=== PATIENT | female | born 1970 | race Caucasian/White ===

== ENCOUNTER 2024-04-22 13:23 | Emergency (ER) | payer OTHER ==
[~2024-04-22] VITALS: Ht 165.1 cm; Wt 81.1 kg
[2024-04-22] MEDS ORDERED: HYDROmorphone HCL 2 MG/ML VL/or syr IM ONE (14:00)
[2024-04-22] MEDS ORDERED: ONDANSETRON ODT 4 MG TAB PO ONE (14:00)
--- NOTE | 2024-04-22 14:03 | ED.PDOC ---
Musculoskeletal HPI Comments 53-year-old female presents with a chief complaint of bilateral arm pain and deformity s/p fall. Patient states that she had a mechanical fall backwards onto outstretched upper extremities at home and injured both arms, right more than left. Patient mentions that she feels like her right upper extremity is broken because she has broken it twice before in the past. Patient is also complaining of left arm pain and is unsure if she broke it as well. Patient denies hitting her head or losing consciousness. Chief Complaint: Upper Extremity Time Seen by MD: 13:48 Reviewed Notes: Medications, Allergies Allergies: Coded Allergies: NO KNOWN ALLERGIES (Unverified , 04/22/24) Information Source: Patient Mode of Arrival: Ambulatory Location: Bilateral Extremity Location: Arm Timing: Minutes Prehospital treatment: None Severity: Moderate Able to Move Extremity: No Bear Weight: No Pain: Severe Hand Dominance: Right Mechanism: Blunt Trauma Circumstances: Fall Onset of Symptoms: After Trauma Symptoms: Pain DVT Risk Factors: NONE Last Tetanus: Unknown Past Medical History PAST MEDICAL HISTORY: Denies Surgical History (Other): 2 previous right upper extremity orthopedic surgeries MECHANICAL APPLICATIONS ENGINEER History: No Pertinent MECHANICAL APPLICATIONS ENGINEER History Family History Family History: Reviewed,noncontributory to illness Social History Smoker: Non-Smoker Alcohol: Denies ETOH Use Drugs: Denies Drug Use Lives In: Home Constitutional: denies: chills, diaphoresis, fatigue, fever, malaise, sweats, weakness, others EENTM: denies: blurred vision, double vision, ear bleeding, ear discharge, ear drainage, ear pain, ear ringing, eye pain, eye redness, hearing loss, mouth pain, mouth swelling, nasal discharge, nose bleeding, nose congestion, nose pain, photophobia, tearing, throat pain, throat swelling, voice changes, others Respiratory: denies: cough, hemoptysis, orthopnea, SOB at rest, shortness of breath, SOB with excertion, stridor, wheezing, others Cardiovascular: denies: chest pain, dizzy spells, diaphoresis, Dyspnea on exertion, edema, irregular heart beat, left arm pain, lightheadedness, palpitations, PND, syncope, others Gastrointestinal: denies: abdomen distended, abdominal pain, blood streaked bowels, constipated, diarrhea, dysphagia, difficulty swallowing, hematemesis, melena, nausea, poor appetite, poor fluid intake, rectal bleeding, rectal pain, vomiting, others Genitourinary: denies: abnormal vagina bleeding, burning, dyspareunia, dysuria, flank pain, frequency, hematuria, incontinence, pain, , vagina discharge, urgency, others Neurological: denies: dizziness, fainting, headache, left sided numbness, left sided weakness, numbness, paresthesia, pre-existing deficit, right sided numbness, right sided weakness, seizure, speech problems, tingling, tremors, weakness, others Musculoskeletal: reports: muscle pain; denies: back pain, gout, joint pain, joint swelling, muscle stiffness, neck pain, others Integumetry: denies: bruises, change in color, change in hair/nails, dryness, laceration, lesions, lumps, rash, wounds, others Allergic/Immunocompromised: denies: Difficulty Healing, Frequent Infections, Hives, Itching, others Hematologic/Lymphatic: denies: anemia, blood clots, easy bleeding, easy bruising, swollen glands, others Endocrine: denies: excessive hunger, excessive sweating, excessive thirst, excessive urination, flushing, intolerance to cold, intolerance to heat, unexplained weight gain, unexplained weight loss, others Psychiatric: denies: anxiety, bipolar disorder, depression, hopeless, panic disorder, schizophrenia, sleepless, suicidal, others All Other Systems: Reviewed and Negative Physical Exam General Appearance: Mild Distress HEENT: PERRL/EOMI Neck: Full Range of Motion, Normal Inspection Respiratory: Lungs Clear, No Accessory Muscle Use, No Respiratory Distress, Normal Breath Sounds Cardiovascular: No Edema, No JVD, Regular Rate/Rhythm Breast Exam: Deferred Gastrointestinal: Non Tender, Soft Genitalia: Deferred Pelvic: Deferred Rectal: Deferred Extremities: No pedal edema, Other (Right wrist deformity, tenderness and soft tissue swelling distal radial aspect. Left wrist diffuse mild soft tissue tenderness and minimal soft tissue swelling. Bilateral upper extremities neurovascularly intact.) Neurologic: Alert (Oriented x4), Normal Affect, Normal Mood, Other (Ambulatory. No gross focal deficit.) Cerebellar Function: NOT DONE Reflexes: NOT DONE Skin: Dry, Normal Color, Warm Lymphatic: NOT DONE Was a procedure done? Was a procedure done?: Yes Sedation Sedation?: No Other Procedure Procedure Splinting of the right upper extremity Informed consent obtained: Yes Risks, benefits, and alternati: Yes Notes Sugar-tong splint was applied to the right forearm, wrist and hand. The right upper extremity was neurovascularly intact after the splint was applied. Differential Diagnosis EXT Differential Diagnosis: Compartment Syndrome, Fracture, Sprain, Dislocation, Contusion, Strain X-Ray, Labs, Meds, VS Vital Signs Date Time Temp Pulse Resp B/P (MAP) Pulse Ox O2 Delivery O2 Flow Rate FiO2 04/22/24 18:37 60 13 125/53 04/22/24 18:08 61 04/22/24 18:05 60 16 128/59 04/22/24 16:00 98.1 63 16 123/60 (81) 96 98.1 04/22/24 15:45 62 16 95 Room Air* 0 21 04/22/24 15:00 65 16 136/71 (92) 93 04/22/24 14:42 97 16 177/90 04/22/24 14:12 58 16 135/77 04/22/24 14:00 98.3 57 16 135/77 (96) 93 98.3 04/22/24 13:41 97.1 65 20 172/111 (131) 96 97.1 Lab Test 04/22/24 15:03 Range/Units Beta HCG, Quantitative 3.0 1.5-4.2 mIU/mL Current Medications Medications (Trade) Dose Ordered Sig/Rosey Route Start Time Stop Time Status Last Admin Sodium Chloride 1,000 ml @ 1,000 mls/hr Q1H ONCE IV 04/22/24 14:00 04/22/24 14:59 DC 04/22/24 14:13 Ondansetron HCl (Zofran) 4 mg ONCE ONCE IV 04/22/24 14:00 04/22/24 14:01 DC 04/22/24 14:12 Hydromorphone HCl (Dilaudid Injection) 1 mg ONCE ONCE IV 04/22/24 14:00 04/22/24 14:01 DC 04/22/24 14:12 Hydromorphone HCl (Dilaudid Injection) 1 mg ONCE ONCE IV 04/22/24 18:00 04/22/24 18:01 DC 04/22/24 18:05 Ondansetron HCl (Zofran) 4 mg ONCE ONCE IV 04/22/24 19:15 04/22/24 19:16 DC 04/22/24 19:37 PROCEDURE(s): LWRI - L WRIST 3+ VIEW XRAY REASON: trauma ORDER NUMBER(s): [id number], ACCESSION NUMBER(s): [id number] EXAM: XY L WRIST 3+ VIEW XRAY CLINICAL HISTORY: trauma COMPARISON: None TECHNIQUE: XY L WRIST 3+ VIEW XRAY Findings/Impression: 3 views of the left wrist. There is no evidence of an acute fracture, dislocation, blastic, or lytic lesions. No radiopaque foreign bodies. No joint effusion or superficial soft tissue abnormalities. EDURE(s): RWRI - R WRIST 3+ VIEW XRAY REASON: trauma ORDER NUMBER(s): [id number], ACCESSION NUMBER(s): [id number] EXAM: XY R WRIST 3+ VIEW XRAY CLINICAL HISTORY: trauma COMPARISON: None TECHNIQUE: XY R WRIST 3+ VIEW XRAY Findings/Impression: 3 views of the right wrist. Impacted fracture of the distal radius with dorsal angulation of the distal fracture fragments. Mild soft tissue edema. There is no evidence of dislocation, blastic, or lytic lesions. No radiopaque foreign bodies. EDURE(s): LHAN - L HAND 3V XRAY REASON: trauma ORDER NUMBER(s): [id number], ACCESSION NUMBER(s): [id number] EXAM: XY L HAND 3V XRAY CLINICAL HISTORY: trauma COMPARISON: None TECHNIQUE: XY L HAND 3V XRAY Findings/Impression: 3 views of the left hand. There is no evidence of an acute fracture, dislocation, blastic, or lytic lesions. No radiopaque foreign bodies. No superficial soft tissue abnormalities. EDURE(s): RHAN - R HAND 3 VIEW XRAY REASON: trauma ORDER NUMBER(s): [id number], ACCESSION NUMBER(s): [id number] EXAM: XY R HAND 3 VIEW XRAY CLINICAL HISTORY: trauma COMPARISON: None TECHNIQUE: XY R HAND 3 VIEW XRAY Findings/Impression: 3 views of the right hand. Impacted fracture of the distal radius with dorsal angulation of the distal fracture fragments. Mild soft tissue edema. There is no evidence of dislocation, blastic, or lytic lesions. No radiopaque foreign bodies. EDURE(s): LFOR - L FOREARM XRAY REASON: trauma ORDER NUMBER(s): [id number], ACCESSION NUMBER(s): [id number] EXAM: XY L FOREARM XRAY CLINICAL HISTORY: trauma COMPARISON: None TECHNIQUE: XY L FOREARM XRAY Findings/Impression: 2 views of the left forearm. There is no evidence of an acute fracture, dislocation, blastic, or lytic lesions. No radiopaque foreign bodies. No superficial soft tissue abnormalities. vPROCEDURE(s): RFOR - R FOREARM XRAY REASON: trauma ORDER NUMBER(s): [id number], ACCESSION NUMBER(s): [id number] EXAM: XY R FOREARM XRAY CLINICAL HISTORY: trauma COMPARISON: None TECHNIQUE: XY R FOREARM XRAY Findings/Impression: 2 views of the right forearm. Impacted fracture of the distal radius with dorsal angulation of the distal fracture fragments. Mild soft tissue edema. There is no evidence of dislocation, blastic, or lytic lesions. No radiopaque foreign bodies. X-Ray, Labs, Meds, VS Comment 53-year-old female with a history of 2 prior right upper extremity fractures presenting with bilateral forearm/wrist pain status post mechanical fall onto bilateral outstretched upper extremities Vitals unremarkable Exam remarkable for right wrist deformity, swelling and tenderness, left wrist swelling and tenderness Rhythm strip independently interpreted by me: Sinus rhythm, rate 62, no ectopy. Left forearm, wrist, and hand x-rays unremarkable Right forearm, wrist and hand x-rays: Impacted fracture of the distal radius with dorsal angulation of the distal fracture fragments. Mild soft tissue edema. There is no evidence of dislocation, blastic, or lytic lesions. No radiopaque foreign bodies. Patient treated with the following in the ED: L 0.9 normal saline IV bolus, Dilaudid 1 mg IV x4, Zofran 4 mg IV x3 The right forearm, wrist and hand were placed in a sugar-tong splint. The right upper extremity was neurovascularly intact after the splint was applied. Please see procedure note for details. On re-evaluation, patient states pain has improved. Vitals were stable. She is able to move the fingers of her right hand. Patient appears stable for discharge with close outpatient follow-up with an orthopedist. She will be referred to our orthopedic clinic, Dr. Owen. Rx Dilaudid, Zofran Time of 1ST Reevaluation: 14:18 Reevaluation 1ST: Unchanged Patient Education/Counseling: Diagnosis, Need For Follow Up Family Education/Counseling: No Family Present Departure 1 Departure Time of Disposition: 20:28 Impression: Primary Impression: Closed right radial fracture Qualified Codes: S52.501A - Unspecified fracture of the lower end of right radius, initial encounter for closed fracture Disposition: HOME / SELF CARE / HOMELESS Condition: Stable Referrals: DIDIER OWEN MD Additional Instructions: Follow-up with Dr. Owen, orthopedics in 1-2 days. [place] [address] Ph: [phone] DIAGNOSTIC IMAGING Diagnostic Imaging Report : [id number] Signed PATIENT: MANOLO GOODEN ACCT: [id number] UNIT: [id number] : 1970 LOC: ER ROOM / BED: / AGE / SEX: 53 / F ADM STATUS: REG ER SERVICE 1351 ORDERING PHYSICIAN: GUANAKO POLLARD MD PROCEDURE(s): RWRI - R WRIST 3+ VIEW XRAY REASON: trauma ORDER NUMBER(s): [id number], ACCESSION NUMBER(s): [id number] EXAM: XY R WRIST 3+ VIEW XRAY CLINICAL HISTORY: trauma COMPARISON: None TECHNIQUE: XY R WRIST 3+ VIEW XRAY Findings/Impression: 3 views of the right wrist. Impacted fracture of the distal radius with dorsal angulation of the distal fracture fragments. Mild soft tissue edema. There is no evidence of dislocation, blastic, or lytic lesions. No radiopaque foreign bodies. e-Prescriptions Hydromorphone Hcl (Dilaudid) 2 Mg Tab 1 TAB PO QID PRN, #30 TAB prn pain Prov: GUANAKO POLLARD MD 04/22/24 Ondansetron Odt 4MG Tab (ZOFRAN PO) 4 Mg Tb 4 MG PO TID PRN, #30 TAB prn nausea/vomiting ODT TAB-DISSOLVE IN MOUTH, THEN SWALLOW Prov: GUANAKO POLLARD MD 04/22/24 Discharged With: Spouse Critical Care Note Critical Care Time?: No Stability Stability form required: No I personally scribed for GUANAKO POLLARD MD ([email or web address]) on 04/22/24 at 14:03. Electronically submitted by Bradford Hale ([email or web address]). GUANAKO POLLARD MD Apr 22, 2024 14:03
[2024-04-22] MEDS: ONDANSETRON HCL 4 MG/2 ML VIAL IV ONE ×2 (14:12→19:37)
[2024-04-22] MEDS: HYDROmorphone HCL 2 MG/ML VL/or syr IV ONE ×3 (14:12→21:07)
[2024-04-22] MEDS: SODIUM CHLORIDE 0.9% 1,000 ML IV ONE (14:13)
[2024-04-22 15:45] VITALS: PULSE 62; RESP 16; O2SAT 95
--- NOTE | 2024-04-22 17:13 | DVH ---
EXAM: XY R WRIST 3+ VIEW XRAY CLINICAL HISTORY: trauma COMPARISON: None TECHNIQUE: XY R WRIST 3+ VIEW XRAY Findings/Impression: 3 views of the right wrist. Impacted fracture of the distal radius with dorsal angulation of the distal fracture fragments. Mild soft tissue edema. There is no evidence of dislocation, blastic, or lytic lesions. No radiopaque foreign bodies.
--- NOTE | 2024-04-22 17:14 | DVH ---
EXAM: XY R FOREARM XRAY CLINICAL HISTORY: trauma COMPARISON: None TECHNIQUE: XY R FOREARM XRAY Findings/Impression: 2 views of the right forearm. Impacted fracture of the distal radius with dorsal angulation of the distal fracture fragments. Mild soft tissue edema. There is no evidence of dislocation, blastic, or lytic lesions. No radiopaque foreign bodies.
--- NOTE | 2024-04-22 17:14 | DVH ---
EXAM: XY L WRIST 3+ VIEW XRAY CLINICAL HISTORY: trauma COMPARISON: None TECHNIQUE: XY L WRIST 3+ VIEW XRAY Findings/Impression: 3 views of the left wrist. There is no evidence of an acute fracture, dislocation, blastic, or lytic lesions. No radiopaque foreign bodies. No joint effusion or superficial soft tissue abnormalities.
--- NOTE | 2024-04-22 17:16 | DVH ---
EXAM: XY L FOREARM XRAY CLINICAL HISTORY: trauma COMPARISON: None TECHNIQUE: XY L FOREARM XRAY Findings/Impression: 2 views of the left forearm. There is no evidence of an acute fracture, dislocation, blastic, or lytic lesions. No radiopaque foreign bodies. No superficial soft tissue abnormalities.
--- NOTE | 2024-04-22 17:17 | DVH ---
EXAM: XY L HAND 3V XRAY CLINICAL HISTORY: trauma COMPARISON: None TECHNIQUE: XY L HAND 3V XRAY Findings/Impression: 3 views of the left hand. There is no evidence of an acute fracture, dislocation, blastic, or lytic lesions. No radiopaque foreign bodies. No superficial soft tissue abnormalities.
--- NOTE | 2024-04-22 17:17 | DVH ---
EXAM: XY R HAND 3 VIEW XRAY CLINICAL HISTORY: trauma COMPARISON: None TECHNIQUE: XY R HAND 3 VIEW XRAY Findings/Impression: 3 views of the right hand. Impacted fracture of the distal radius with dorsal angulation of the distal fracture fragments. Mild soft tissue edema. There is no evidence of dislocation, blastic, or lytic lesions. No radiopaque foreign bodies.
[2024-04-22 19:40] VITALS: PULSE 70; RESP 16; TEMP 98.6; O2SAT 93
[2024-04-22] MEDS ORDERED: HYDR2TAB58 PO ×2 (20:32→20:33)
[2024-04-22] MEDS ORDERED: ZOFR4T PO (20:32)
[2024-04-22 21:10] VITALS: O2SAT 95
[2024-04-22 21:37] VITALS: BP 147/76; PULSE 61; RESP 20
[2024-04-22 22:13] LABS: Urine Bacteria FEW /hpf (None Seen); Urine Blood TRACE /uL (Negative); Urine Clarity Clear (Clear); Urine Color Light-Yellow (Yellow); Urine Mucus FEW (None Seen); Urine Protein, UAD Negative (Negative); Urine Specific Gravity 1.011 (1.001-1.035); Urine Squamous Epithelial Cell FEW /hpf (<5); Urine Urobilinogen Normal (Negative); Urine WBC 1 /HPF (0-5); Urine pH 5.5 (5.0-9.0)
== END 2024-04-22 21:41 | disposition home or self-care (01) ==
LOC: ER 13:23
DX: S52.591A Other fractures of lower end of right radius, initial encounter for closed fracture (principal); R10.2 Pelvic and perineal pain; R60.0 Localized edema; W18.09XA Striking against other object with subsequent fall, initial encounter; Y93.89 Activity, other specified; Y92.009 Unspecified place in unspecified non-institutional (private) residence as the place of occurrence of the external cause; Y99.8 Other external cause status
CPT/HCPCS: 29125; 36415; 73090; 73110; 73130; 81001; 84702; 96361; 96374; 96375; 96376; 99285; J1171; J2405; J7030

== ENCOUNTER 2024-05-01 10:04 | Inpatient (IN) | payer OTHER ==
[~2024-05-01] VITALS: Ht 165.1 cm; Wt 89.9 kg
[~2024-05-01 10:04] MED LIST: HYDR2TAB58 PO; ZOFR4T PO
--- NOTE | 2024-05-01 11:14 | ED.PDOC ---
History of Present Illness HPI Comments This is a 53-year-old female who comes in with chief complaint of right wrist pain from previous fracture. The patient was told by the orthopedic surgeon to return to the emergency department's for possible admission and surgery. The patient states that eight days ago she fell down and landed on her right wrist sustaining a fracture. She was seen and x-rays were done. The patient was then referred to the orthopedic surgeon and after seeing him he was referred her here for admission for surgery. At this time the patient's wrist is in a splint. She is still complaining of some pain. Patient denies any other complaints at this time. Chief Complaint: Upper Extremity Time Seen by MD: 10:29 Primary Care Provider: JANIYA Sofia Notes: Nurses Notes, Medications, Allergies Allergies: Coded Allergies: NO KNOWN ALLERGIES (Unverified , 04/22/24) Home Meds Active Scripts Hydromorphone Hcl (Dilaudid) 2 Mg Tab, 1 TAB PO QID PRN, #30 TAB prn pain Prov:GUANAKO POLLARD MD 04/22/24 Ondansetron Odt 4MG Tab (ZOFRAN PO) 4 Mg Tb, 4 MG PO TID PRN, #30 TAB prn nausea/vomiting ODT TAB-DISSOLVE IN MOUTH, THEN SWALLOW Prov:GUANAKO POLLARD MD 04/22/24 Information Source: Patient Mode of Arrival: Ambulatory Severity: Moderate Timing: Days (Under the eight days ago) Duration: Since onset Prehospital treatment: None Location: Right wrist pain Past Medical History PAST MEDICAL HISTORY: Anxiety, High Lipids Surgical History: BTL, Hernia Repair, Hysterectomy (Partial) Surgical History (Other): Previous right wrist surgery, abdominoplasty LEADERSHIP DEVELOPMENT CONSULTANT History: No Pertinent LEADERSHIP DEVELOPMENT CONSULTANT History Family History Family History: Reviewed,noncontributory to illness Social History Smoker: Non-Smoker Alcohol: Rarely Drugs: Denies Drug Use Lives In: Home Constitutional: denies: chills, diaphoresis, fatigue, fever, malaise, sweats, weakness, others EENTM: denies: blurred vision, double vision, ear bleeding, ear discharge, ear drainage, ear pain, ear ringing, eye pain, eye redness, hearing loss, mouth pain, mouth swelling, nasal discharge, nose bleeding, nose congestion, nose pain, photophobia, tearing, throat pain, throat swelling, voice changes, others Respiratory: denies: cough, hemoptysis, orthopnea, SOB at rest, shortness of breath, SOB with excertion, stridor, wheezing, others Cardiovascular: denies: chest pain, dizzy spells, diaphoresis, Dyspnea on exertion, edema, irregular heart beat, left arm pain, lightheadedness, palpitations, PND, syncope, others Gastrointestinal: denies: abdomen distended, abdominal pain, blood streaked bowels, constipated, diarrhea, dysphagia, difficulty swallowing, hematemesis, melena, nausea, poor appetite, poor fluid intake, rectal bleeding, rectal pain, vomiting, others Genitourinary: denies: abnormal vagina bleeding, burning, dyspareunia, dysuria, flank pain, frequency, hematuria, incontinence, pain, , vagina discharge, urgency, others Neurological: denies: dizziness, fainting, headache, left sided numbness, left sided weakness, numbness, paresthesia, pre-existing deficit, right sided numbne ss, right sided weakness, seizure, speech problems, tingling, tremors, weakness, others Musculoskeletal: denies: back pain, gout, joint pain, joint swelling, muscle pain, muscle stiffness, neck pain, others Integumetry: denies: bruises, change in color, change in hair/nails, dryness, laceration, lesions, lumps, rash, wounds, others Allergic/Immunocompromised: denies: Difficulty Healing, Frequent Infections, Hives, Itching, others Hematologic/Lymphatic: denies: anemia, blood clots, easy bleeding, easy bruising, swollen glands, others Endocrine: denies: excessive hunger, excessive sweating, excessive thirst, excessive urination, flushing, intolerance to cold, intolerance to heat, unexplained weight gain, unexplained weight loss, others Psychiatric: denies: anxiety, bipolar disorder, depression, hopeless, panic disorder, schizophrenia, sleepless, suicidal, others Physical Exam General Appearance: Moderate Distress HEENT: Normal ENT Inspection, Pharynx Normal, TMs Normal Neck: Full Range of Motion, Non-Tender, Normal, Normal Inspection Respiratory: Chest Non-Tender, Lungs Clear, No Accessory Muscle Use, No Respiratory Distress, Normal Breath Sounds Cardiovascular: No Edema, No JVD, No Murmur, No Gallop, Normal Peripheral Pulses, Regular Rate/Rhythm Breast Exam: Deferred Gastrointestinal: No Organomegaly, Non Tender, No Pulsatile Mass, Normal Bowel Sounds, Soft Genitalia: Deferred Pelvic: Deferred Rectal: Deferred Extremities: No calf tenderness, Normal capillary refill, No pedal edema, Other (Right wrist is in a splint) Musculoskeletal : Apperance: Normal Neurologic: Alert, architectural associate II-XII nml as Tested, No Motor Deficits, Normal Affect, Normal Mood, No Sensory Deficits Cerebellar Function: Normal Reflexes: Normal Skin: Dry, Normal Color, Warm Lymphatic: No Adenopathy Was a procedure done? Was a procedure done?: No Differential Dx Considerations may include: Fracture, strain X-Ray, Labs, Meds, VS Vital Signs Date Time Temp Pulse Resp B/P (MAP) Pulse Ox O2 Delivery O2 Flow Rate FiO2 05/01/24 10:40 Room Air* 0 21 05/01/24 10:34 72 17 98 Room Air 05/01/24 10:34 98.2 72 17 131/97 (108) 98 98.2 05/01/24 10:10 98.2 83 20 130/93 (105) 98 98.2 Lab Test 05/01/24 11:00 Range/Units White Blood Count 6.2 4.4-10.8 10^3/uL Red Blood Count 4.33 4.0-5.20 10^6/uL Hemoglobin 11.6 L 12.2-16.2 g/dL Hematocrit 35.3 L 36.0-46.0 % Mean Corpuscular Volume 81.6 80.0-100.0 fL Mean Corpuscular Hemoglobin 26.8 L 28.0-32.0 pg Mean Corpuscular Hemoglobin Concent 32.9 32.0-36.0 g/dL Red Cell Distribution Width 15.3 H 11.8-14.3 % Platelet Count 313 140-450 10^3/uL Mean Platelet Volume 8.0 6.9-10.8 fL Neutrophils (%) (Auto) 63.5 37.0-80.0 % Lymphocytes (%) (Auto) 27.7 10.0-50.0 % Monocytes (%) (Auto) 4.9 0.0-12.0 % Eosinophils (%) (Auto) 3.5 0.0-7.0 % Basophils (%) (Auto) 0.4 0.0-2.0 % Neutrophils # (Auto) 4.0 1.6-8.6 10 ^3/uL Lymphocytes # (Auto) 1.7 0.4-5.4 10 ^3/uL Monocytes # (Auto) 0.3 0-1.3 10 ^3/uL Eosinophils # (Auto) 0.2 0-0.8 10 ^3/uL Basophils # (Auto) 0 0-0.2 10 ^3/uL Nucleated Red Blood Cells 0.1 % Prothrombin Time 11.1 9.3-11.8 sec Prothrombin Time INR 1.05 0.9-1.15 Activated Partial Thromboplast Time 24.2 L 24.5-34.5 SEC Sodium Level 141 136-145 mmol/L Potassium Level 3.8 3.5-5.1 mmol/L Chloride Level 107 98-107 mmol/L Carbon Dioxide Level 24 20-31 mmol/L Anion Gap 10 5-15 Blood Urea Nitrogen 8 L 9-23 mg/dL Creatinine 0.89 0.550-1.02 mg/dL Glomerular Filtration Rate Calc 78 >90 mL/min BUN/Creatinine Ratio 9.0 L 10.0-20.0 Serum Glucose 95 74-106 mg/dL Calcium Level 10.2 8.7-10.4 mg/dL IV Hep-Lock was established We spoke with the orthopedic surgeon and he is going to be consult on this patient for possible surgery tomorrow We did review the x-rays from 04/22 of the right wrist. The patient was typed and screened. The patient's CBC is within normal limits The chemistry panel is within normal limits The patient was being admitted at this time The patient was to remain NPO after midnight Time of 1ST Reevaluation: 11:19 Reevaluation 1ST: Unchanged Patient Education/Counseling: Diagnosis, Treatment, Prognosis Family Education/Counseling: No Family Present Departure 1 Departure Time of Disposition: 11:18 Impression: Primary Impression: Closed right radial fracture Qualified Codes: S52.131D - Displaced fracture of neck of right radius, subsequent encounter for closed fracture with routine healing Disposition: ADMITTED INPATIENT Admit to: Med Surg Condition: Fair Critical Care Note Critical Care Time?: No Stability Stability form required: Yes Unstable for transfer: ED Physician Assesment (Clinical assesment) Heart Score Heart Score: Heart Score Response (Comments) Value History N/A 0 EKG N/A 0 Age N/A 0 Risk Factors N/A 0 Troponin N/A 0 Total 0 MAEVE WERNER MD May 01, 2024 11:14
[2024-05-01 11:24] LABS: Basophils # (auto) 0 10 ^3/uL (0-0.2); Eosinophils # (auto) 0.2 10 ^3/uL (0-0.8); Eosinophils % (auto) 3.5 % (0.0-7.0); Hemoglobin 11.6 g/dL (12.2-16.2); Monocytes # (auto) 0.3 10 ^3/uL (0-1.3); Nucleated Red Blood Cells % 0.1 %
[2024-05-01 11:29] LABS: Basophils % (auto) 0.4 % (0.0-2.0); Hematocrit 35.3 % (36.0-46.0); Lymphocytes # (auto) 1.7 10 ^3/uL (0.4-5.4); Lymphocytes % (auto) 27.7 % (10.0-50.0); Mean Corpuscular Hemoglobin 26.8 pg (28.0-32.0); Mean Corpuscular Hgb Conc. 32.9 g/dL (32.0-36.0); Mean Corpuscular Volume 81.6 fL (80.0-100.0); Monocytes % (auto) 4.9 % (0.0-12.0); Neutrophils % (auto) 63.5 % (37.0-80.0); Platelet Count (auto) 313 10^3/uL (140-450); Red Blood Cells 4.33 10^6/uL (4.0-5.20); Red Cell Distribution Width 15.3 % (11.8-14.3); White Blood Cell 6.2 10^3/uL (4.4-10.8)
[2024-05-01 11:34] LABS: INR 1.05 (0.9-1.15); Partial Thromboplastin Time 24.2 SEC (24.5-34.5); Prothrombin Time 11.1 sec (9.3-11.8)
[2024-05-01 11:41] LABS: Chloride 107 mmol/L (98-107); Potassium 3.8 mmol/L (3.5-5.1); Sodium 141 mmol/L (136-145)
[2024-05-01 11:43] LABS: Anion Gap 10 (5-15); Calcium 10.2 mg/dL (8.7-10.4); Carbon Dioxide 24 mmol/L (20-31)
[2024-05-01 11:48] LABS: Glucose 95 mg/dL (74-106)
[2024-05-01 11:49] LABS: Blood Urea Nitrogen 8 mg/dL (9-23)
[2024-05-01 12:46] LABS: Urine Bacteria FEW /hpf (None Seen); Urine Blood 1+ /uL (Negative); Urine Color Yellow (Yellow); Urine Mucus FEW (None Seen); Urine Protein, UAD 1+ (Negative); Urine Specific Gravity 1.029 (1.001-1.035); Urine Squamous Epithelial Cell FEW /hpf (<5); Urine Urobilinogen Normal (Negative); Urine WBC 4 /HPF (0-5); Urine pH 5.5 (5.0-9.0)
[2024-05-01 12:52] LABS: Urine Clarity Hazy (Clear)
[2024-05-01 14:19] VITALS: PULSE 54; RESP 20; O2SAT 95
[2024-05-01] MEDS ORDERED: DOCUSATE SOD 100 MG CAP PO PRN (16:45)
[2024-05-01] MEDS ORDERED: ACETAMINOPHEN 325 MG TAB PO PRN (16:45)
[2024-05-01] MEDS ORDERED: ESCI10TA PO (16:48)
[2024-05-01] MEDS ORDERED: PRAV20TA3 PO (16:48)
[2024-05-01] MEDS ORDERED: PRAZ5CAP25 PO (16:48)
[2024-05-01] MEDS ORDERED: [UNRECOGNIZED DRUG - CODE] PO (16:48)
[2024-05-01] MEDS ORDERED: TIZA-206 PO (16:48)
[2024-05-01] MEDS ORDERED: CLON-857 PO (16:48)
[2024-05-01] MEDS ORDERED: clonazePAM 0.5 MG TAB PO PRN (17:00)
[2024-05-01] MEDS ORDERED: Tizanidine Hydrochloride PO PRN (17:00)
--- NOTE | 2024-05-01 17:06 | DVHHP2 ---
History of Present Illness Reason for Visit: right wrist pain History of Present Illness Marley Mcelroy is a 53-year-old female with past medical history of anxiety, and hyperlipidemia, who came in due to right wrist pain. Patient fell on 04/22/2024 and fractured her right wrist. She was initially seen here, x-rays were complet ed, and a splint was placed. She was told to follow up with orthopedic surgery. When she was seen by orthopedic surgery, as an outpatient, she was told to come back to the ER to be admitted for surgery. Patient still has her original splint in place, and C/O pain to her right wrists. Cardiovascular: hyperipidemia Psych: Anxiety Past Surgical History: Hysterectomy, Hernia Repair, Other (face lift, tummy tuck), Tubal Ligation Smoke: No ALCOHOL: none Drugs: None Lives: with Family Domestic Violence: Neg Review of Systems Constitutional: No: Fever, Chills, Sweats, Weakness, Malaise, Other Eyes: No: Pain, Vision change, Conjunctivae inflammation, Eyelid inflammation, Other, Redness ENT: No: Ear pain, Ear discharge, Nose pain, Nose discharge, Nose congestion, Mouth pain, Mouth swelling, Throat pain, Throat swelling, Other Respiratory: No: Cough, Dry, Shortness of breath, SOB with excertion, Wheezing, Hemoptysis, Pleuritic Pain, Sputum, Wheezing, Other Cardiovascular: No: Chest Pain, Palpitations, Orthopnea, Paroxysmal Noc. Dyspnea, Edema, Lt Headedness, Other Gastrointestinal: No: Nausea, Vomiting, Abdominal Pain, Diarrhea, Constipation, Melena, Hematochezia, Other Genitourinary: No Dysuria, No Frequency, No Incontinence, No Hematuria, No Retention, No Other Musculoskeletal: arm pain (right wrist); No: other, neck pain, shoulder pain, back pain, hand pain, leg pain, foot pain Skin: No: Rash, Lesions, Jaundice, Bruising, Other Neurological: No: Weakness, Numbness, Incoordination, Change in speech, Confusion, Seizures, Other Allergies: Coded Allergies: NO KNOWN ALLERGIES (Unverified , 04/22/24) Medications Current Medications Medications Dose Ordered Sig/Rosey Route Start Time Stop Time Status Last Admin Dose Admin Acetaminophen/ Hydrocodone Bitart 1 tab Q4HP PRN PO 05/01/24 16:45 UNV Ondansetron HCl 4 mg Q4HP PRN IV 05/01/24 16:45 UNV Docusate Sodium 100 mg BIDPRN PRN PO 05/01/24 16:45 UNV Acetaminophen 650 mg Q6HP PRN PO 05/01/24 16:45 UNV Pravastatin Sodium 40 mg HS PO 05/01/24 22:00 UNV Patient Own Medication 1 tab BIDPRN PRN PO 05/01/24 17:00 UNV Patient Own Medication 1 tab DAILY PO 05/02/24 10:00 UNV Patient Own Medication 10 mg HS PO 05/01/24 22:00 UNV Patient Own Medication 1 tab QHSP PRN PO 05/01/24 17:00 UNV Exam Vital Signs Vital Signs Date Time Temp Pulse Resp B/P (MAP) Pulse Ox O2 Delivery O2 Flow Rate FiO2 05/01/24 14:19 54 20 95 Room Air* 0 21 05/01/24 14:00 121/68 (85) 05/01/24 12:34 98.2 98.2 General Appearance: Alert, Oriented X3, Cooperative, mild distress HEENT: Atraumatic, PERRLA Respiratory: Clear to auscultation, Normal air movement Cardiovascular: Normal S1, Normal S2, Other (SB) Abdominal: Normal bowel sounds, Soft, No tenderness Extremities: No clubbing, No cyanosis, Other (right arm in splint, C/O pain) Skin: No rashes, No breakdown, No significant lesion Neuro: Normal gait, Normal speech, Strength at 5/5 X4 ext, Normal tone Psych/Mental Status: Mental status NL, Mood NL Labs/Xrays Labs Test 05/01/24 12:30 05/01/24 11:00 Range/Units Urine Color Yellow Yellow Urine Clarity Hazy H Clear Urine pH 5.5 5.0-9.0 Urine Specific [place] 1.029 1.001-1.035 Urine Protein 1+ H Negative Urine Ketones Negative Negative Urine Blood 1+ H Negative /uL Urine Nitrite Negative Negative Urine Bilirubin Negative Negative Urine Urobilinogen Normal Negative mg/dL Urine Leukocyte Esterase Negative Negative /uL Urine RBC 2 0 - 4 /hpf Urine Microscopic WBC 4 0-5 /HPF Urine Squamous Epithelial Cells Few <5 /hpf Urine Bacteria Few H None Seen /hpf Urine Mucus Few None Seen Urine Glucose Normal Normal mg/dL White Blood Count 6.2 4.4-10.8 10^3/uL Red Blood Count 4.33 4.0-5.20 10^6/uL Hemoglobin 11.6 L 12.2-16.2 g/dL Hematocrit 35.3 L 36.0-46.0 % Mean Corpuscular Volume 81.6 80.0-100.0 fL Mean Corpuscular Hemoglobin 26.8 L 28.0-32.0 pg Mean Corpuscular Hemoglobin Concent 32.9 32.0-36.0 g/dL Red Cell Distribution Width 15.3 H 11.8-14.3 % Platelet Count 313 140-450 10^3/uL Mean Platelet Volume 8.0 6.9-10.8 fL Neutrophils (%) (Auto) 63.5 37.0-80.0 % Lymphocytes (%) (Auto) 27.7 10.0-50.0 % Monocytes (%) (Auto) 4.9 0.0-12.0 % Eosinophils (%) (Auto) 3.5 0.0-7.0 % Basophils (%) (Auto) 0.4 0.0-2.0 % Neutrophils # (Auto) 4.0 1.6-8.6 10 ^3/uL Lymphocytes # (Auto) 1.7 0.4-5.4 10 ^3/uL Monocytes # (Auto) 0.3 0-1.3 10 ^3/uL Eosinophils # (Auto) 0.2 0-0.8 10 ^3/uL Basophils # (Auto) 0 0-0.2 10 ^3/uL Nucleated Red Blood Cells 0.1 % Prothrombin Time 11.1 9.3-11.8 sec Prothrombin Time INR 1.05 0.9-1.15 Activated Partial Thromboplast Time 24.2 L 24.5-34.5 SEC Sodium Level 141 136-145 mmol/L Potassium Level 3.8 3.5-5.1 mmol/L Chloride Level 107 98-107 mmol/L Carbon Dioxide Level 24 20-31 mmol/L Anion Gap 10 5-15 Blood Urea Nitrogen 8 L 9-23 mg/dL Creatinine 0.89 0.550-1.02 mg/dL Glomerular Filtration Rate Calc 78 >90 mL/min BUN/Creatinine Ratio 9.0 L 10.0-20.0 Serum Glucose 95 74-106 mg/dL Calcium Level 10.2 8.7-10.4 mg/dL EXAM: XY R WRIST 3+ VIEW XRAY 04/22/2024 Findings/Impression: 3 views of the right wrist. Impacted fracture of the distal radius with dorsal angulation of the distal fracture fragments. Mild soft tissue edema. There is no evidence of dislocation, blastic, or lytic lesions. No radiopaque foreign bodies. Assessment/Plan Assessment/Plan Assessment: Closed right radial fracture, Anxiety, Insomnia, Hyperlipidemia, Plan: Admit to Med-Surg, Orthopedic consult, NPO after midnight, PT/PTT, ECHO, Home medications reconciled, Plan discussed with: Patient My Orders Orders - PACO TRIANA Procedure Category Date Status Time Admit ADMIT 05/01/24 Transmitted 16:43 Code Status CODE 05/01/24 Transmitted 16:43 Hydrocodone-Acet PHA 05/01/24 Logged 5/325mg Tab ([place] 16:45 Ondansetron Hcl PHA 05/01/24 Logged (Zofran) 16:45 Docusate Sodium PHA 05/01/24 Logged Capsule (Colace 16:45 Complete Blood Count LAB 05/02/24 Verified 04:00 Comprehensive LAB 05/02/24 Verified Metabolic Panel 04:00 Cardiac DIET 05/01/24 Transmitted Diet-2gna,Lofat,Lochol Dinner Echo 2d Mode Cardiac US 05/01/24 Logged DOP 16:43 Condition: Serious ART 05/01/24 In Process 16:43 Acetaminophen Tablet PHA 05/01/24 Logged (Tylenol Tablet) 16:45 Pravastatin Sodium PHA 05/01/24 Logged Tablet (Pravachol Tab 22:00 (Nf) Clonazepam PHA 05/01/24 Logged 17:00 (Nf) Escitalopram PHA 05/02/24 Logged Oxalate (Lexapro) 10:00 (Nf) Prazosin Hcl PHA 05/01/24 Logged (Prazosin Hydrochlorid 22:00 (Nf) Zolpidem PHA 05/01/24 Logged Tartrate (Zolpidem 17:00 (Nf) Tizanidine PHA 05/01/24 Transmitted Hydrochloride 17:00 Date of Service: May 01, 2024 Billing Provider: PACO TRIANA Common Visit Codes: [id number] INP/OBS CARE (MOD) PACO TRIANA May 01, 2024 17:06
[2024-05-01] MEDS: HYDROcodone-ACET 5/325MG TAB PO PRN (18:13)
[2024-05-01 19:42] VITALS: PULSE 67; RESP 18; O2SAT 96
[2024-05-01 20:02] VITALS: BP 156/85; PULSE 58; RESP 18; TEMP 98.2; O2SAT 96
[2024-05-01 20:18] VITALS: BP 156/85; PULSE 58; RESP 18; TEMP 98.2; O2SAT 96
[2024-05-01 21:00] VITALS: BP 156/85; PULSE 58; RESP 18; TEMP 98.2; O2SAT 96
[2024-05-01] MEDS: PRAVASTATIN SODIUM 20 MG TAB PO SCH (22:00)
[2024-05-02] VITALS (9 sets, daily range): BP systolic 114–140; BP diastolic 54–85; PULSE 51–84; RESP 14–18; TEMP 97.8–99.1; O2SAT 91–99
[2024-05-02 07:23] LABS: Basophils # (auto) 0 10 ^3/uL (0-0.2); Basophils % (auto) 0.5 % (0.0-2.0); Eosinophils # (auto) 0.3 10 ^3/uL (0-0.8); Eosinophils % (auto) 4.4 % (0.0-7.0); Hematocrit 32.6 % (36.0-46.0); Hemoglobin 10.5 g/dL (12.2-16.2); Lymphocytes # (auto) 2.7 10 ^3/uL (0.4-5.4); Lymphocytes % (auto) 40.6 % (10.0-50.0); Mean Corpuscular Hemoglobin 26.5 pg (28.0-32.0); Mean Corpuscular Hgb Conc. 32.3 g/dL (32.0-36.0); Mean Corpuscular Volume 82.1 fL (80.0-100.0); Monocytes # (auto) 0.4 10 ^3/uL (0-1.3); Monocytes % (auto) 6.3 % (0.0-12.0); Neutrophils # (auto) 3.2 10 ^3/uL (1.6-8.6); Neutrophils % (auto) 48.2 % (37.0-80.0); Nucleated Red Blood Cells % 0.2 %; Platelet Count (auto) 278 10^3/uL (140-450); Red Blood Cells 3.97 10^6/uL (4.0-5.20); Red Cell Distribution Width 15.4 % (11.8-14.3); White Blood Cell 6.6 10^3/uL (4.4-10.8)
[2024-05-02 07:24] LABS: Albumin 3.9 g/dL (3.2-4.8); Alkaline Phosphatase 96 U/L (46-116); Anion Gap 11 (5-15); Aspartate Aminotransferase 16 U/L (13-40); Blood Urea Nitrogen 10 mg/dL (9-23); Calcium 9.7 mg/dL (8.7-10.4); Carbon Dioxide 24 mmol/L (20-31); Glucose 84 mg/dL (74-106); Potassium 3.7 mmol/L (3.5-5.1); Sodium 142 mmol/L (136-145); Total Protein 6.6 g/dL (5.7-8.2)
[2024-05-02 07:25] LABS: Bilirubin, Total 0.4 mg/dL (0.2-1.0)
[2024-05-02 07:27] LABS: Alanine Aminotransferase < 9 U/L (7-40); Chloride 107 mmol/L (98-107)
[2024-05-02] MEDS ORDERED: LIDOCAINE 2% (LOCAL ANESTH.) PF 5ml SDV ONE (08:31)
[2024-05-02] MEDS ORDERED: PROPOFOL 10 MG/ML 20 ML IV ONE (08:31)
[2024-05-02] MEDS ORDERED: DexAMETHasone SOD PHOS 10MG/1ML VIAL INJ ONE ×2 (08:31)
[2024-05-02] MEDS ORDERED: KETOROLAC TROMETH 30 MG/ML 1ML VIAL ONE (08:31)
[2024-05-02] MEDS ORDERED: ONDANSETRON HCL 4 MG/2 ML VIAL ONE (08:31)
[2024-05-02] MEDS ORDERED: GLYCOPYRROLATE 0.2 MG/ML 1ML VIAL ONE (08:31)
[2024-05-02] MEDS ORDERED: fentaNYL CITRATE 100 MCG/2 ML VL ONE (08:33)
[2024-05-02] MEDS ORDERED: KETAMINE 50mg/ML 1ml syringe ONE (08:33)
[2024-05-02] MEDS: BUPIVACAINE W/ EPINEPH 0.5% INJ 50ML MDV IJ ONE (09:26)
[2024-05-02] MEDS: BUPIVACAINE 0.25% INJ 50ML VIAL ONE (09:26)
--- NOTE | 2024-05-02 09:27 | DVHHP2 ---
History Allergies: Coded Allergies: NO KNOWN ALLERGIES (Unverified , 04/22/24) Chief Complaint: Right wrist pain deformity s/p mechanical fall on 04/22/24, no hitting head, no AMS before or after fall Present Illness(Onset/Duration 53F, right wrist pain s/p mechanical fall on 04/22/24. presented to ER, splinted, referred to orthopaedic clinic, then referred to me for ORIF non contirbutory Past Surgical History percutaneous pin right distal radius age 21 tubal ligation age 41 Medications non contributory Physical Exam Skin intact EENT NCAT Chest and Lungs CTA B Heart RRR neg mrg Abdomen NBS ND NT Extremities Right wrist, skin intact, NVI, moderate swelling, ROM/stabililty not assessed due to fracture Vital Signs Vital Signs Date Time Temp Pulse Resp B/P (MAP) Pulse Ox O2 Delivery O2 Flow Rate FiO2 05/02/24 08:00 63 17 96 Room Air* 0 21 05/02/24 05:00 97.9 129/75 (93) 97.9 Impressions/Description Right distal radius fracture, impacted, dorsal angulated Plan NPO surgery, open reduction internal fixation right distal radius fracture risks explained to include NV damage, non-union, mal union, post traumatic arthritis, pain ADELAIDE BRIAN MD May 02, 2024 09:27
[2024-05-02] MEDS: CELECOXIB 100 MG CAP ONE (09:31)
[2024-05-02] MEDS: GABAPENTIN 300 MG CAP ONE (09:31)
[2024-05-02] MEDS: ACETAMINOPHEN IV 100 ML IV ONE (09:32)
[2024-05-02] MEDS: ACETAMINOPHEN IV 1000 MG/100ML (10MG/ML) IV ONE (09:35)
[2024-05-02] MEDS: GABAPENTIN 300 MG CAP PO ONE (09:36)
[2024-05-02] MEDS: CELECOXIB 100 MG CAP PO ONE (09:36)
[2024-05-02] MEDS: ceFAZolin 2 GM/D5W100ml 100 ML IV ONE (09:57)
[2024-05-02] MEDS ORDERED: ePHEDrine SULFATE 50 MG/ML AMP ONE (10:19)
[2024-05-02] MEDS ORDERED: NALOXONE HCL 0.4 MG/ML VIAL IV PRN (11:15)
[2024-05-02] MEDS ORDERED: FLUMAZENIL 0.1 MG/ML INJ 10ML MDV IV PRN (11:15)
[2024-05-02] MEDS ORDERED: fentaNYL CITRATE 100 MCG/2 ML VL IV PRN (11:15)
[2024-05-02] MEDS ORDERED: oxyCODONE HCL 5MG TAB PO ONE (11:15)
[2024-05-02] MEDS ORDERED: ePHEDrine SULFATE 50 MG/ML AMP IV PRN (11:15)
[2024-05-02] MEDS ORDERED: ONDANSETRON HCL 4 MG/2 ML VIAL IV PRN (11:15)
[2024-05-02] MEDS ORDERED: HYDROmorphone HCL 2 MG/ML VL/or syr IV PRN (11:15)
[2024-05-02] MEDS ORDERED: hydrALAZINE HCL 20 MG/ML VL IV PRN (11:15)
[2024-05-02] MEDS: LIDOCAINE 2%HCL (LOCAL ANESTH.) INJ 20ML MDV ONE (11:18)
--- NOTE | 2024-05-02 11:19 | DVHOP2 ---
Operative Report - 2 Report Details Date: 05/02/24 Preop Diagnosis: RIGHT distal radius fracture, comminuted, intrarticular Postop Diagnosis: same Surgeon: Francesco Brian MD Host/Hostess Restaurant: Leon Anesthesiologist: Dr Hale Anesthesia: Regional Drains: none Implant: volar plate, pin Consent: The patient was informed of the risks and benefits of the procedure. These include but are not limited to complications of anesthesia, postoperative infection, incomplete relief of symptoms, recurrence of symptoms, damage to b lood vessels, nerves and tendons, deep venous thrombosis, pulmonary embolism and possible need for repeat surgery in the future. Complications: none Estimated Blood Loss: 25 cc Fluids: 750 cc crystalloid Findings: above, RIGHT distal radius fracture, short, dorsal angulation, intraarticular Indications for Surgery: significantly displaced distal radius fracture Name of Procedure Performed Open reductioninternal fixation of right distal radius fracture Procedure Details Procedure Details: Patient brought in the operating room received Ancef 2 g IV piggyback preoperatively sterile prep and drape of right upper extremity after placement of nonsterile tourniquet time-out performed comprehension right-sided correct site open reduction internal fixation right distal radius fracture correct procedure after review of operative consent history and physical my initials on right forearm exsanguination with Esmarch tourniquet elevated to 250 mm of mercury total tourniquet time 45 minutes longitudinal incision made over FCR tendon sharp dissection through skin down to subcutaneous tissue blunt dissection down to deep fascia deep fascia divided FCR common flexors and median nerve retracted ulnarly radial artery retracted radially exposing the pronator quadratus which was elevated off the volar distal radius with a subperiosteal elevator and osteotome was then placed in the fracture and then levered to effect lengthening buddhism of dorsal volar angle and buddhism of radial inclination and fixation with K-wire volar plate then applied a placing three screws distally after placing demineralized bone matrix into the fracture gap and two screws proximally a cortical bicortical C-arm fluoro taken showing good buddhism of length good buddhism of radial inclination good buddhism of dorsal dorsal volar angle good position of hardware and length of screws tourni quet let down excellent hemostasis noted closure irrigation closure with subcutaneous 2-0 Vicryl skin henna K-wire bent acutely and cut short sterile dressing single sugar-tong splint placed in full supination no drains specimens complications. Specimen: none Condition Stable Disposition Home FRANCESCO BRIAN MD 25, 2025 11:19
--- NOTE | 2024-05-02 12:23 | DVHPN2 ---
Reviewed: Care Plan, H&P, Labs, Medications, Previous Orders, Radiology Changes from previous H/P or p: No Changes Eyes: No Pain, No Vision change, No Conjunctivae inflammation, No Eyelid inflammation, No Other, No Redness ENT: No Ear pain, No Ear discharge, No Nose pain, No Nose discharge, No Nose congestion, No Mouth pain, No Mouth swelling, No Throat pain, No Throat swelling, No Other Cardiovascular: No Chest Pain, No Palpitations, No Orthopnea, No Paroxysmal Noc. Dyspnea, No Edema, No Lt Headedness, No Other Respiratory: No Cough, No Dry, No Shortness of breath, No SOB with excertion, No Wheezing, No Hemoptysis, No Pleuritic Pain, No Sputum, No Other Gastrointestinal: No Nausea, No Vomiting, No Abdominal Pain, No Diarrhea, No Constipation, No Melena, No Hematochezia, No Other Genitourinary: No Dysuria, No Frequency, No Incontinence, No Hematuria, No Retention, No Other Musculoskeletal: No other, No neck pain, No shoulder pain; arm pain (right wrist); No back pain, No hand pain, No leg pain, No foot pain Skin: No Rash, No Lesions, No Jaundice, No Bruising, No Other Objective Vitals Vital Signs Date Time Temp Pulse Resp B/P (MAP) Pulse Ox O2 Delivery O2 Flow Rate FiO2 05/02/24 11:06 Room Air 0 05/02/24 09:00 98.0 63 17 139/71 (93) 96 98.0 05/02/24 08:00 21 Intake/Output Intake and Output 05/02/24 07:00 Output Total 1 ml Balance -1 ml Output Urine Total 1 ml Medications Current Medications Medications Dose Ordered Sig/Rosey Route Start Time Stop Time Status Last Admin Dose Admin Acetaminophen/ Hydrocodone Bitart 1 tab Q4HP PRN PO 05/01/24 16:45 05/01/24 18:13 1 TAB Ondansetron HCl 4 mg Q4HP PRN IV 05/01/24 16:45 Docusate Sodium 100 mg BIDPRN PRN PO 05/01/24 16:45 Acetaminophen 650 mg Q6HP PRN PO 05/01/24 16:45 Pravastatin Sodium 40 mg HS PO 05/01/24 22:00 Clonazepam 2 mg BIDPRN PRN PO 05/01/24 17:00 Patient Own Medication 1 tab DAILY PO 05/02/24 10:00 Patient Own Medication 2 HS PO 05/01/24 22:00 Patient Own Medication 1 tab QHSP PRN PO 05/01/24 17:00 Patient Own Medication 1 tab Q8HPRN PRN PO 05/01/24 17:00 Laboratory Results Laboratory Tests 05/02/24 06:05 Chemistry Test 05/02/24 06:05 Albumin 3.9 g/dL (3.2-4.8) Calcium Level 9.7 mg/dL (8.7-10.4) Total Protein 6.6 g/dL (5.7-8.2) LFT Test 05/02/24 06:05 Alanine Aminotransferase (ALT) < 9 U/L (7-40) Alkaline Phosphatase 96 U/L (46-116) Aspartate Amino Transferase (AST) 16 U/L (13-40) Total Bilirubin 0.4 mg/dL (0.2-1.0) Urinalysis Test 05/01/24 12:30 Urine Color Yellow (Yellow) Urine Clarity Hazy (Clear) H Urine pH 5.5 (5.0-9.0) Urine Specific [place] 1.029 (1.001-1.035) Urine Protein 1+ (Negative) H Urine Ketones Negative (Negative) Urine Blood 1+ /uL (Negative) H Urine Nitrite Negative (Negative) Urine Bilirubin Negative (Negative) Urine Urobilinogen Normal mg/dL (Negative) Urine Leukocyte Esterase Negative /uL (Negative) Urine RBC 2 /hpf (0 - 4) Urine Microscopic WBC 4 /HPF (0-5) Urine Squamous Epithelial Cells Few /hpf (<5) Urine Bacteria Few /hpf (None Seen) H Urine Mucus Few (None Seen) Urine Glucose Normal mg/dL (Normal) Labs and/or images reviewed: Labs reviewed by me, Image(s) reviewed by me Assessment/Plan Assessment/Plan Right distal radius fracture Status post Open reduction-internal fixation by Dr. James on 05/01/2024; pain medication History of mechanical fall 04/22/2024 Anxiety Hypercholesterolemia Plan discussed with: Patient Date of Service: May 02, 2024 Billing Provider: JACINTO SAWNSON MD Common Visit Codes: [id number] INP/OBS CARE(HIGH) JACINTO SWANSON MD May 02, 2024 12:23
[2024-05-02] MEDS: PANTOPRAZOLE 40 MG/10 ML VIAL INJ IV ONE (13:42)
[2024-05-02] MEDS: MORPHINE SULFATE 4 MG/ML SYR/VIAL IV PRN (16:15)
[2024-05-02] MEDS: ONDANSETRON HCL 4 MG/2 ML VIAL IV PRN (16:27)
--- NOTE | 2024-05-02 16:40 | DVH ---
EXAM: XY C ARM FLUOROSCOPY UP TO 60MIN, XY R WRIST 2 VIEW XRAY HISTORY: ORIF RIGHT DISTAL RADIUS TECHNIQUE: Intraoperative radiographs of the right wrist were obtained. FLUOROSCOPY TIME: 17.0 seconds FLUOROSCOPY IMAGES: 4 TOTAL DOSE: 0.24 mGy COMPARISON: None FINDINGS/IMPRESSION: Refer to intraoperative report for further evaluation.
--- NOTE | 2024-05-02 16:40 | DVH ---
C-ARM FLUOROSCOPY: PROCEDURE: Right radius ORIF FLUOROSCOPY TIME: 17 seconds DAP: 0.24 mgy FINDINGS: Spot intraoperative C arm radiographs demonstrating right radius ORIF. IMPRESSION: Please refer to surgical report for detailed findings.
[2024-05-02] MEDS: HYDROcodone-ACET 10/325MG TAB PO SCH (19:01)
[2024-05-03 01:00] VITALS: BP 113/60; PULSE 65; RESP 18; TEMP 97.8; O2SAT 94
[2024-05-03] MEDS: HYDROcodone-ACET 10/325MG TAB PO SCH (04:43)
[2024-05-03 05:00] VITALS: BP_SYST 147; BP_SYST 98; BP_DIAS 47; BP_DIAS 98; PULSE 58; RESP 18; TEMP 98.3; O2SAT 93
[2024-05-03 06:45] LABS: Basophils # (auto) 0 10 ^3/uL (0-0.2); Basophils % (auto) 0.3 % (0.0-2.0); Eosinophils # (auto) 0 10 ^3/uL (0-0.8); Eosinophils % (auto) 0.1 % (0.0-7.0); Hematocrit 29.9 % (36.0-46.0); Hemoglobin 10.1 g/dL (12.2-16.2); Lymphocytes # (auto) 1.5 10 ^3/uL (0.4-5.4); Lymphocytes % (auto) 14.1 % (10.0-50.0); Mean Corpuscular Hemoglobin 27.5 pg (28.0-32.0); Mean Corpuscular Hgb Conc. 33.7 g/dL (32.0-36.0); Mean Corpuscular Volume 81.7 fL (80.0-100.0); Monocytes # (auto) 0.6 10 ^3/uL (0-1.3); Monocytes % (auto) 5.3 % (0.0-12.0); Neutrophils # (auto) 8.5 10 ^3/uL (1.6-8.6); Neutrophils % (auto) 80.2 % (37.0-80.0); Platelet Count (auto) 298 10^3/uL (140-450); Red Blood Cells 3.67 10^6/uL (4.0-5.20); Red Cell Distribution Width 15.6 % (11.8-14.3); White Blood Cell 10.6 10^3/uL (4.4-10.8)
[2024-05-03 07:55] VITALS: RESP 18
[2024-05-03] MEDS ORDERED: HYDR2TAB58 PO (08:08)
[2024-05-03] MEDS ORDERED: CEPH500C PO (08:10)
[2024-05-03] MEDS: PANTOPRAZOLE 40 MG/10 ML VIAL INJ IV SCH (08:59)
[2024-05-03 09:07] VITALS: BP 111/66; PULSE 61; RESP 16; TEMP 98.3; O2SAT 94
[2024-05-03] MEDS: HYDROMORPHONE HCL 1 MG/ML INJ IV PRN (09:35)
[2024-05-03] MEDS ORDERED: ZOFR4T PO (13:15)
--- NOTE | 2024-05-03 13:20 | DVHDS2 ---
Discharge Summary Date of Admission May 01, 2024 at 16:43 Date of Discharge: May 03, 2024 Admitting Diagnosis Right radial fracture Wounds: Fracture right radius Labs/Diagnostic Data: Laboratory Results Test 05/03/24 05:54 05/02/24 06:05 05/01/24 12:30 05/01/24 11:00 White Blood Count 10.6 10^3/uL (4.4-10.8) Red Blood Count 3.67 10^6/uL (4.0-5.20) Hemoglobin 10.1 g/dL (12.2-16.2) Hematocrit 29.9 % (36.0-46.0) Mean Corpuscular Volume 81.7 fL (80.0-100.0) Mean Corpuscular Hemoglobin 27.5 pg (28.0-32.0) Mean Corpuscular Hemoglobin Concent 33.7 g/dL (32.0-36.0) Red Cell Distribution Width 15.6 % (11.8-14.3) Platelet Count 298 10^3/uL (140-450) Mean Platelet Volume 7.9 fL (6.9-10.8) Neutrophils (%) (Auto) 80.2 % (37.0-80.0) Lymphocytes (%) (Auto) 14.1 % (10.0-50.0) Monocytes (%) (Auto) 5.3 % (0.0-12.0) Eosinophils (%) (Auto) 0.1 % (0.0-7.0) Basophils (%) (Auto) 0.3 % (0.0-2.0) Neutrophils # (Auto) 8.5 10 ^3/uL (1.6-8.6) Lymphocytes # (Auto) 1.5 10 ^3/uL (0.4-5.4) Monocytes # (Auto) 0.6 10 ^3/uL (0-1.3) Eosinophils # (Auto) 0 10 ^3/uL (0-0.8) Basophils # (Auto) 0 10 ^3/uL (0-0.2) Nucleated Red Blood Cells 0.0 % Sodium Level 142 mmol/L (136-145) Potassium Level 3.7 mmol/L (3.5-5.1) Chloride Level 107 mmol/L (98-107) Carbon Dioxide Level 24 mmol/L (20-31) Anion Gap 11 (5-15) Blood Urea Nitrogen 10 mg/dL (9-23) Creatinine 0.77 mg/dL (0.550-1.02) Glomerular Filtration Rate Calc 93 mL/min (>90) BUN/Creatinine Ratio 13.0 (10.0-20.0) Serum Glucose 84 mg/dL (74-106) Calcium Level 9.7 mg/dL (8.7-10.4) Total Bilirubin 0.4 mg/dL (0.2-1.0) Aspartate Amino Transferase (AST) 16 U/L (13-40) Alanine Aminotransferase (ALT) < 9 U/L (7-40) Alkaline Phosphatase 96 U/L (46-116) Total Protein 6.6 g/dL (5.7-8.2) Albumin 3.9 g/dL (3.2-4.8) Urine Color Yellow (Yellow) Urine Clarity Hazy (Clear) Urine pH 5.5 (5.0-9.0) Urine Specific [place] 1.029 (1.001-1.035) Urine Protein 1+ (Negative) Urine Ketones Negative (Negative) Urine Blood 1+ /uL (Negative) Urine Nitrite Negative (Negative) Urine Bilirubin Negative (Negative) Urine Urobilinogen Normal mg/dL (Negative) Urine Leukocyte Esterase Negative /uL (Negative) Urine RBC 2 /hpf (0 - 4) Urine Microscopic WBC 4 /HPF (0-5) Urine Squamous Epithelial Cells Few /hpf (<5) Urine Bacteria Few /hpf (None Seen) Urine Mucus Few (None Seen) Urine Glucose Normal mg/dL (Normal) Prothrombin Time 11.1 sec (9.3-11.8) Prothrombin Time INR 1.05 (0.9-1.15) Activated Partial Thromboplast Time 24.2 SEC (24.5-34.5) Other Laboratory Tests 05/03/24 05:54 05/02/24 06:05 Brief Hx & Hospital Course: [age] yr old female came in after mechanical fall underwent ORIF right radial distal fracture treated with the pain medications discharged home on Cipro Dilaudid and Zofran she will follow up with the Dr. Du in 2 weeks Consults/Reason for consult Orthopedic Dr. James Operations or Procedures ORIF right radial distal fracture Condition at Discharge: Fair Final Diagnosis/Problems List Right distal radius fracture Status post Open reduction-internal fixation by Dr. James on 05/01/2024; pain medication History of mechanical fall 04/22/2024 Anxiety Hypercholesterolemia Discharge Disposition: Home Discharge Instruct/Medications Diet: Regular Activity: No Restrictions, As Tolerated Follow Up/Referral: Follow up with the orthopedic Dr. Warner in two weeks Medications: Zofran Cipro Dilaudid Transmitted to pharmacy 35 (Time taken for discharge summary 35 minutes) Discharge Statement: "Patient was advised to return to the ER or call 911 if any headaches, dizziness, shortness of breath, chest pain, abdominal pain, bleeding, fevers, or worsening of medical condition. Patient was counseled about treatment plan, medications, possible side effects, patientverbalized understanding. All questions were answered to the best of my ability. This discharge took greater then 30 minutes in planning, reviewing documentation, counseling the patient, and discussing with other team members." ASSESSMENT ASSESSMENT Hospital Course Improved Assessment Right distal radius fracture Status post Open reduction-internal fixation by Dr. James on 05/01/2024; pain medication History of mechanical fall 04/22/2024 Anxiety Hypercholesterolemia Date of Service: May 03, 2024 Billing Provider: JACINTO SWANSON MD Common Visit Codes: [id number] DISCH DAY >30min JACINTO SWANSON MD May 03, 2024 13:20
[2024-05-03 13:57] VITALS: BP 106/70; PULSE 63; RESP 16; TEMP 98.5; O2SAT 95
[2024-05-03 14:20] VITALS: TEMP 36.9
== END 2024-05-03 16:28 | disposition home or self-care (01) | DRG 511 ==
LOC: ER 10:04 → OVERFLOW 16:43 → CENTRAL 20:02
PROVIDERS: ADMIT Family Medicine; ATTEND Family Medicine
PROC: 0PSH04Z Reposition Right Radius with Internal Fixation Device, Open Approach (ICD-10-PCS; principal; 2024-05-02 09:57)
DX: S52.571A Other intraarticular fracture of lower end of right radius, initial encounter for closed fracture (principal); R71.0 Precipitous drop in hematocrit; F41.9 Anxiety disorder, unspecified; E78.5 Hyperlipidemia, unspecified; E78.00 Pure hypercholesterolemia, unspecified; G47.00 Insomnia, unspecified; Z90.711 Acquired absence of uterus with remaining cervical stump; W18.39XA Other fall on same level, initial encounter; Y93.89 Activity, other specified; Y92.89 Other specified places as the place of occurrence of the external cause; Y99.8 Other external cause status; Z79.899 Other long term (current) drug therapy
CPT/HCPCS: 36415; 73100; 76000; 80048; 80053; 81001; 85025; 85610; 85730; 86850; 86900; 86901; G0378; J0131; J1100; J1885; J2003; J2405; J2470; J2704; J3490